=== PATIENT | male | born 1945 | race Caucasian/White ===

== ENCOUNTER 2017-06-10 13:24 | Emergency (ER) | payer MEDICARE ==
[~2017-06-10] VITALS: Ht 170.1 cm; Wt 68.0 kg
[~2017-06-10 13:24] MED LIST: ACETAMINOPHEN A PO; ACIDOPHILUS W/P1 CAP PO; AUGMENTIN XR 101 TE2 PO; CATAPRES-TTS 10.1 MG T; CIPRO500 MG PO; FLUONAZOLE100 M1 PO; KEFLEX500 MG PO; KROGER NIC21 MG/24 H TD; LOPRESSOR25 MG PO; PERCOCET 325 MG1 TA2 PO
[2017-06-10 14:04] LABS: BASO % 0.2 % (0.0-1.0); EOS # 0.2 10*3/uL (0.0-0.4); EOS % 4.7 % (1.0-4.0); HEMOGLOBIN 13.8 g/dl (14.0-18.0); LYMPH # 1.3 10*3/uL (1.3-4.4); LYMPH % 26.7 % (27.0-41.0); MEAN CELL VOLUME 90.1 fl (80.0-94.0); MEAN CORPUSCULAR HGB 28.9 pg (27.0-31.0); MEAN CORPUSCULAR HGB CONC 32.1 g/dl (33.0-37.0); MEAN PLATELET VOLUME 10.2 fl (9.6-12.3); MONO # 0.5 10*3/uL (0.1-1.0); MONO % 11.5 % (3.0-9.0); NEUT # 2.6 10*3/uL (2.3-7.9); NEUT % 55.8 % (47.0-73.0); PLATELET COUNT AUTOMATED 234 10*3/uL (130-400); RED BLOOD COUNT 4.77 10*6/uL (4.50-5.90); RED CELL DISTRI WIDTH 15.9 % (0-14.5); WHITE BLOOD COUNT 4.7 10*3/uL (4.8-10.8)
[2017-06-10 14:14] LABS: ACT PARTIAL THROMBO TIME 23.5 SECONDS (20.8-31.5)
[2017-06-10 14:21] LABS: ALBUMIN 3.7 gm/dl (3.1-4.5); ALKALINE PHOSPHATASE 75 U/L (45-117); BUN 21 mg/dl (7-24); CHLORIDE 103 mmol/L (98-107); CREATININE 1.17 mg/dL (0.70-1.30); POTASSIUM 4.3 mmol/L (3.5-5.1); SGOT/AST 4 IU/L (3-35); SGPT/ALT 14 U/L (12-78); SODIUM 139 mmol/L (136-145); TOTAL PROTEIN 7.4 gm/dL (6.4-8.2)
[2017-06-10 14:24] LABS: TROPONIN I < 0.015 ng/ml (<0.045)
== END 2017-06-10 17:30 | disposition home or self-care (01) ==
LOC: ED 13:24
PROVIDERS: Emergency Medicine
DX: R07.9 Chest pain, unspecified (principal); R09.1 Pleurisy; F17.200 Nicotine dependence, unspecified, uncomplicated; Z79.899 Other long term (current) drug therapy

== ENCOUNTER 2019-10-29 14:38 | Inpatient (IN) | payer MEDICARE ==
[~2019-10-29] VITALS: Ht 170 cm; Wt 50.1 kg
[2019-10-29 14:43] VITALS: BP 151/99
[2019-10-29 15:41] LABS: BASO % 0.3 % (0.0-1.0); EOS % 0.3 % (1.0-4.0); HEMATOCRIT 48.1 % (42.0-52.0); HEMOGLOBIN 15.6 g/dl (14.0-18.0); LYMPH # 0.5 10*3/uL (1.3-4.4); LYMPH % 7.3 % (27.0-41.0); MEAN CELL VOLUME 93.2 fl (80.0-94.0); MEAN CORPUSCULAR HGB 30.2 pg (27.0-31.0); MEAN CORPUSCULAR HGB CONC 32.4 g/dl (33.0-37.0); MEAN PLATELET VOLUME 11.5 fl (9.6-12.3); MONO # 0.2 10*3/uL (0.1-1.0); MONO % 2.5 % (3.0-9.0); NEUT # 6.1 10*3/uL (2.3-7.9); NEUT % 89.3 % (47.0-73.0); PLATELET COUNT AUTOMATED 172 10*3/uL (130-400); RED BLOOD COUNT 5.16 10*6/uL (4.50-5.90); WHITE BLOOD COUNT 6.8 10*3/uL (4.8-10.8)
[2019-10-29 16:25] LABS: ALBUMIN 3.4 gm/dl (3.1-4.5); ALKALINE PHOSPHATASE 40 U/L (45-117); BUN 26 mg/dl (7-24); CHLORIDE 102 mmol/L (98-107); CREATININE 1.23 mg/dL (0.70-1.30); LIPASE 56 U/L (73-393); SGOT/AST 16 IU/L (3-35); SGPT/ALT 13 U/L (12-78); SODIUM 132 mmol/L (136-145); TOTAL PROTEIN 6.8 gm/dL (6.4-8.2)
[2019-10-29 16:51] LABS: POTASSIUM > 10.0 mmol/L (3.5-5.1)
[2019-10-29 17:33] VITALS: BP 156/86
[2019-10-29 18:07] VITALS: BP 177/100
[2019-10-29 18:42] LABS: CREATININE 1.56 mg/dL (0.70-1.30)
[2019-10-29 18:49] LABS: POTASSIUM 3.2 mmol/L (3.5-5.1)
[2019-10-29 19:31] VITALS: BP 149/90
[2019-10-29 20:22] VITALS: BP 145/84
--- NOTE | 2019-10-29 21:24 | NUR ---
PER RN ON FLOOR SHE IS IN THE MIDDLE OF MED PASS AND WILL BE READY FOR PATIENT IN 15-20 MINUTES.
[2019-10-29 21:50] VITALS: BP 185/85
--- NOTE | 2019-10-29 21:50 | NUR ---
A 74, admitted to , under the services of PAWAN Okeefe DO with a diagnosis of YVETTE, COLON CA, HYPERKALEMIA. Chief complaint is CONSTIPATION. Patient arrived via bed from ER. Monitor applied. Initial assessment completed. Vital signs taken and recorded. PAWAN OKEEFE DO notified of admission to the unit. Orders received. See assessment for past medical history, medications and allergies. Patient and/or family oriented to unit. [facility] visitation policy reviewed. Clothing/patient valuable form completed. ZACHARY QUACH
--- NOTE | 2019-10-29 22:00 | NUR ---
DR. BRIONES NOTIFIED OF COMPLETE MED REC. NO ORDERS AT THIS TIME.
[2019-10-29] MEDS ORDERED: LOMOTIL 2.5-0.1 EACH PO (22:29)
[2019-10-29] MEDS ORDERED: PROTONIX40 MG PO (22:29)
[2019-10-29] MEDS ORDERED: CYMBALTA30 MG PO (22:30)
[2019-10-29] MEDS ORDERED: ONDANSETRON ODT8 MG PO (22:31)
[2019-10-30] VITALS: BP 150/86
--- NOTE | 2019-10-30 | NUR ---
DR. BRIONES NOTIFIED OF BP. NO ORDERS AT THIS TIME.
[2019-10-30 00:33] LABS: BUN 20 mg/dl (7-24); CHLORIDE 109 mmol/L (98-107); CREATININE 1.08 mg/dL (0.70-1.30); POTASSIUM 3.9 mmol/L (3.5-5.1); SODIUM 143 mmol/L (136-145)
--- NOTE | 2019-10-30 01:00 | NUR ---
PT HAD BOWEL MOVEMENT AT THIS TIME
--- NOTE | 2019-10-30 03:54 | NUR ---
24 HR chart check completed.
[2019-10-30 06:51] LABS: ACT PARTIAL THROMBO TIME 26.5 SECONDS (20.0-32.1); INTERNATIONAL NORM RATIO 1.2 (2.0-3.5)
[2019-10-30 06:55] LABS: BASO % 0.4 % (0.0-1.0); EOS # 0.1 10*3/uL (0.0-0.4); EOS % 1.3 % (1.0-4.0); HEMATOCRIT 40.6 % (42.0-52.0); LYMPH # 0.6 10*3/uL (1.3-4.4); LYMPH % 11.3 % (27.0-41.0); MEAN CELL VOLUME 93.1 fl (80.0-94.0); MEAN CORPUSCULAR HGB 29.8 pg (27.0-31.0); MONO # 0.2 10*3/uL (0.1-1.0); MONO % 3.6 % (3.0-9.0); NEUT # 4.4 10*3/uL (2.3-7.9); PLATELET COUNT AUTOMATED 149 10*3/uL (130-400); RED BLOOD COUNT 4.36 10*6/uL (4.50-5.90); RED CELL DISTRI WIDTH 16.7 % (0-14.5); WHITE BLOOD COUNT 5.2 10*3/uL (4.8-10.8)
[2019-10-30 07:01] LABS: BUN 18 mg/dl (7-24); CHLORIDE 109 mmol/L (98-107); CHOLESTEROL 143 mg/dL (<200); CREATININE 1.04 mg/dL (0.70-1.30); PHOSPHOROUS 3.6 mg/dL (2.5-4.9); POTASSIUM 4.3 mmol/L (3.5-5.1); SODIUM 142 mmol/L (136-145); TRIGLYCERIDES 116 mg/dl (<150); VLDL CHOLESTEROL 23 mg/dL (6-40)
[2019-10-30 07:10] LABS: FREE T4 1.45 ng/dl (0.76-1.46); HDL CHOLESTEROL 46 mg/dl (40-60); LDL CHOLESTEROL 74 mg/dL (9-159)
[2019-10-30 07:45] VITALS: BP 140/72
--- NOTE | 2019-10-30 11:58 | NUR ---
Discharge instructions reviewed with patient. Patient receptive and verbalizes understanding. Follow-up care understood. Written instructions given to patient. iv removed. pt aware of discharge instructions, has no questions at this time. will call family to pecan pick[employer], will notify staff when ride will be here. ANNETTE REIS
--- NOTE | 2019-10-30 12:32 | NUR ---
PT DISCHARGED VIA WHEELCHAIR, TOOK PATIENT TO ER WAITING ROOM, HE SAID HE WOULD WAIT OUTSIDE FOR HIS RIDE.
[2019-11-01 13:46] LABS: VITAMIN D, 25-HYDROXY 21.5 ng/mL (30-100)
== END 2019-10-30 12:32 | disposition home or self-care (01) | DRG 683 ==
LOC: ED 14:38 → EDHOLD 21:03 → 4E 21:21
PROVIDERS: Emergency Medicine; Internal Medicine; Nurse Practitioner Family; ADMIT Family Medicine
DX: N17.0 Acute kidney failure with tubular necrosis (principal); C18.9 Malignant neoplasm of colon, unspecified; Z68.1 Body mass index [BMI] 19.9 or less, adult; E86.0 Dehydration; K59.00 Constipation, unspecified; E83.51 Hypocalcemia; R73.9 Hyperglycemia, unspecified; E87.6 Hypokalemia; F17.200 Nicotine dependence, unspecified, uncomplicated; E80.6 Other disorders of bilirubin metabolism; R63.6 Underweight; R03.0 Elevated blood-pressure reading, without diagnosis of hypertension; K21.9 Gastro-esophageal reflux disease without esophagitis; G89.3 Neoplasm related pain (acute) (chronic); Z71.6 Tobacco abuse counseling; Z80.1 Family history of malignant neoplasm of trachea, bronchus and lung

== ENCOUNTER → 2019-11-10 | Outpatient (CLI) | payer MEDICARE ==
[~2019-11-10] MED LIST changes: +CYMBALTA30 MG PO; +LOMOTIL 2.5-0.1 EACH PO; +ONDANSETRON ODT8 MG PO; +PROTONIX40 MG PO
[2019-11-10 16:12] LABS: ALBUMIN 3.4 gm/dl (3.1-4.5); ALKALINE PHOSPHATASE 56 U/L (45-117); BUN 21 mg/dl (7-24); CHLORIDE 104 mmol/L (98-107); POTASSIUM 4.1 mmol/L (3.5-5.1); SGOT/AST 9 IU/L (3-35); SGPT/ALT 21 U/L (12-78); SODIUM 139 mmol/L (136-145); TOTAL PROTEIN 6.7 gm/dL (6.4-8.2)
== END | disposition home or self-care (01) ==
LOC: LAB 15:22
PROVIDERS: Nurse Practitioner Adult Health
DX: K52.1 Toxic gastroenteritis and colitis (principal)

== ENCOUNTER 2020-11-30 15:20 | Inpatient (IN) | payer MEDICARE ==
[~2020-11-30] VITALS: Ht 170.2 cm; Wt 48.5 kg
[2020-11-30 15:47] VITALS: BP 156/92
[2020-11-30] MEDS ORDERED: FLOMAX0.4 MG PO (17:36)
[2020-11-30] MEDS ORDERED: LOMOTIL 2.5-0.1 EACH PO (17:37)
[2020-11-30 18:22] VITALS: BP 164/114
[2020-11-30 18:33] LABS: BASO % 0.3 % (0.0-1.0); HEMATOCRIT 48.9 % (42.0-52.0); LYMPH # 0.3 10*3/uL (1.3-4.4); LYMPH % 4.4 % (27.0-41.0); MEAN CELL VOLUME 96.1 fl (80.0-94.0); MEAN CORPUSCULAR HGB 30.6 pg (27.0-31.0); MEAN CORPUSCULAR HGB CONC 31.9 g/dl (33.0-37.0); MEAN PLATELET VOLUME 10.3 fl (9.6-12.3); MONO # 0.6 10*3/uL (0.1-1.0); MONO % 8.4 % (3.0-9.0); NEUT # 5.7 10*3/uL (2.3-7.9); NEUT % 86.7 % (47.0-73.0); PLATELET COUNT AUTOMATED 219 10*3/uL (130-400); RED BLOOD COUNT 5.09 10*6/uL (4.50-5.90); RED CELL DISTRI WIDTH 15.6 % (0-14.5); WHITE BLOOD COUNT 6.5 10*3/uL (4.8-10.8)
[2020-11-30 18:48] LABS: ALBUMIN 3.7 gm/dl (3.1-4.5); CREATININE 1.79 mg/dL (0.70-1.30); POTASSIUM 3.8 mmol/L (3.5-5.1); TOTAL PROTEIN 7.2 gm/dL (6.4-8.2)
[2020-11-30 20:08] VITALS: BP 177/93
[2020-12-01] VITALS: BP 137/76
[2020-12-01 06:05] LABS: HEMATOCRIT 42.4 % (42.0-52.0); MEAN CELL VOLUME 96.6 fl (80.0-94.0); MEAN CORPUSCULAR HGB CONC 32.1 g/dl (33.0-37.0); MEAN PLATELET VOLUME 10.9 fl (9.6-12.3); PLATELET COUNT AUTOMATED 166 10*3/uL (130-400); RED BLOOD COUNT 4.39 10*6/uL (4.50-5.90); RED CELL DISTRI WIDTH 15.6 % (0-14.5); WHITE BLOOD COUNT 5.8 10*3/uL (4.8-10.8)
[2020-12-01 06:32] LABS: CREATININE 1.7 mg/dL (0.70-1.30); POTASSIUM 3.3 mmol/L (3.5-5.1); TOTAL PROTEIN 5.9 gm/dL (6.4-8.2)
[2020-12-01 07:30] VITALS: BP 128/71
[2020-12-01 07:38] LABS: ATYPICAL LYMPHS 1 % (0-0); PLATELET SUFFICIENCY NORMAL (NORMAL); TOTAL CELLS COUNTED 100 #CELLS
[2020-12-01 08:33] LABS: BILIRUBIN Negative (Negative); BLOOD 3+ (Negative); CLARITY Clear (Clear); COLOR Yellow (Yellow); GLUCOSE Trace (Negative); KETONE Negative (Negative); LEUKO ESTERASE 1+ (Negative); NITRITE Negative (Negative); PH 6.5 (4.5-8.0); SPECIFIC GRAVITY >= 1.030 (1.001-1.030)
[2020-12-01 08:49] LABS: BACTERIA TRACE; RBC 41-50 rbc/hpf (0-2)
[2020-12-01 12:25] VITALS: BP 118/71
[2020-12-01 22:52] VITALS: BP 146/83
[2020-12-02 06:32] VITALS: BP 142/81
[2020-12-02 08:49] VITALS: BP 130/70
[2020-12-02 12:30] VITALS: BP 120/60
[2020-12-02 15:30] VITALS: BP 155/86
[2020-12-02] MEDS ORDERED: HYDROCODONE-AC1 EACH PO (17:38)
[2020-12-02 20:00] VITALS: BP 180/83
[2020-12-02 21:01] VITALS: BP 182/84
[2020-12-03] VITALS (7 sets, daily range): BP systolic 152–192; BP diastolic 77–90
[2020-12-03 04:24] LABS: BILIRUBIN Negative (Negative); BLOOD 3+ (Negative); CLARITY Clear (Clear); GLUCOSE Negative (Negative); KETONE 1+ (Negative); LEUKO ESTERASE 1+ (Negative); NITRITE Negative (Negative)
[2020-12-03 04:40] LABS: COLOR Red (Yellow)
[2020-12-03 04:42] LABS: RBC TNTC rbc/hpf (0-2)
== END 2020-12-03 17:05 | disposition home or self-care (01) | DRG 388 ==
LOC: ED 15:20 → EDHOLD 23:30 → 5E 23:30
PROVIDERS: Internal Medicine; Physician Assistant; ADMIT Student in an Organized Health Care Education/Training Program; ATTEND Student in an Organized Health Care Education/Training Program
PROC: 0D9670Z Drainage of Stomach with Drainage Device, Via Natural or Artificial Opening (ICD-10-PCS; principal; 2020-12-01)
DX: K56.601 Complete intestinal obstruction, unspecified as to cause (principal); N17.0 Acute kidney failure with tubular necrosis; I16.1 Hypertensive emergency; E87.2 Acidosis; C18.9 Malignant neoplasm of colon, unspecified; F32.9 Major depressive disorder, single episode, unspecified; K21.9 Gastro-esophageal reflux disease without esophagitis; F17.210 Nicotine dependence, cigarettes, uncomplicated; Z66 Do not resuscitate; Z51.5 Encounter for palliative care; R00.0 Tachycardia, unspecified; R73.9 Hyperglycemia, unspecified; G89.21 Chronic pain due to trauma; Z92.21 Personal history of antineoplastic chemotherapy; Z89.022 Acquired absence of left finger(s); Z80.1 Family history of malignant neoplasm of trachea, bronchus and lung; Z79.899 Other long term (current) drug therapy